=== PATIENT | male | born 1980 | race Caucasian/White ===

== ENCOUNTER 2024-03-21 15:32 | Outpatient (CLI) | payer BC, SELFPAY ==
--- NOTE | 2024-03-21 15:46 | MR_ITS ---
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 CLINICAL HISTORY: CRUSHING INJURY, HX AMPUTATION FINDINGS: Marrow signal: There are postoperative changes from amputation of the 1st and 2nd digits at the level of the proximal phalanges. There is also amputation of the 3rd digit at the level of the DIP joint. Marrow signal is otherwise unremarkable. Joints: Unremarkable Tendons:Visualized tendons are unremarkable Ligaments:Major ligaments intact Plantar Fascia:No evidence of tear No cystic or soft tissue mass. IMPRESSION: Postoperative changes as detailed above without acute abnormality. Reviewed, Interpreted and Dictated by Roberto Carlos Linares MD Transcribed by Tasneem Trejo Authenticated and [facility]
== END 2024-03-21 23:59 | disposition home or self-care (01) ==
LOC: RAD 15:33
PROVIDERS: PCP Podiatrist Foot & Ankle Surgery; Visit Provider Podiatrist Foot & Ankle Surgery
DX: M79.671 Pain in right foot (principal); S97.01XS Crushing injury of right ankle, sequela; S98.22 Partial traumatic amputation of two or more lesser toes; S92.30 Fracture of unspecified metatarsal bone(s)
CPT/HCPCS: 73718

== ENCOUNTER 2025-05-09 11:03 | Emergency (ER) | payer BC, MEDICAID, SELFPAY ==
[2025-05-09 11:13] VITALS: BP 168/93; PULSE 88; RESP 20; TEMP 36.8; O2SAT 98; BMI 27.8
--- OUTSIDE RECORDS SUMMARY | 2025-05-09 11:17 | XMS_ITS | Clinical Summary ---
Author Organization [facility] Address [address] [place] [address] Care Team Providers Care Sheet Metal Helper Name Role Phone Pcp, No Primary Care Provider Unavailabl e Allergies No known active allergies Medications acetaminophen (Tylenol) 500 MG tablet Take 2 tablets (1,000 mg total) by mouth every 6 (six) hours if needed for pain. 42 tablet 2 Active Additional Information Patient not taking.Reported on 06/30/2024 gabapentin (Neurontin) 100 MG capsule Take 1 capsule (100 mg total) by mouth 3 (three) times a day for 14 days. 42 capsule 2 Active Additional Information Patient not taking.Reported on 06/18/2023 ibuprofen 800 MG tablet Take 1 tablet (800 mg) by mouth every 6 (six) hours if needed for mild pain. 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, sequela 09/13/2022 Immunizations Immunization Administration Dates Next Due Tdap 09/13/2022 Social History Tobacco Use Types Packs/Day Years Used Date Smoking Tobacco: Every Day Cigarettes 1 20 Passive Smoke Exposure: Current Smokeless Tobacco: Current Snuff Tobacco Cessation:Ready to Q uit: No; Counseling Given: Yes Alcohol Use Standard Drinks/Week Comments Not Currently 0 (1 standard drink = 0.6 oz pur e alcohol) PHQ-2 Answer Date Recorded Patient Health Questionnaire-2 Score 0 06/18/2023 PHQ-2A Answer Date Recorded Patient Health Questionnaire-2 Score 0 06/18/2023 Sex and Gender Information Value Date Recorded Sex Assigned at Male 09/14/2022 7:09 AM EST Legal Sex Male 7:02 PM EST Gender Identity Male 09/14/2022 7:09 AM EST Sexual Orientation Not on file Last Filed Vital Signs Vital Sign Reading Time Taken Comments Blood Pressure 122/86 07/25/2024 10:03 AM EDT Pulse 76 07/25/2024 10:03 AM EDT Temperature 36.3 C (97.3 F) 07/25/2024 10:03 AM EDT Respiratory Rate 16 07/25/2024 10:03 AM EDT Oxygen Saturation 97% 06/30/2024 3:10 PM EDT Inhaled Oxygen Concentration - - Weight 99.8 kg (220 lb) 07/25/2024 10:03 AM EDT Height 180.3 cm (5' 11 ) 07/25/2024 10:03 AM EDT Body Mass Index 30.68 07/25/2024 10:03 AM EDT Plan of Treatment Health Maintenance Due Date Last Done Comments [facility]-HIV Screening 1978 [facility]-Hepatitis C Screening 1978 [facility]-Infant/Child/Adol SDOH Screenings 1978 [facility]- SDOH Screenings 1996 [facility]-Adult SDOH Screenings 1996 [facility]-Hepatitis B Vaccines (1 of 3 - 19+ 3-dose series) 1997 [facility]-Pneumococcal Vaccine: Pediatrics (0 to 5 Years) and At-Risk Patients (6 to 49 Years) (1 of 2 - PCV) 1997 CT Colonography 2023 Colonoscopy 2023 FIT-DNA 2023 FIT 2023 FOBT 2023 Sigmoidoscopy 2023 [facility]-Colorectal Cancer Screening 2023 [id number] Vaccine (1 - 2023- season) 2024 [facility]-Depression Screening 06/18/2024 06/18/2023 [facility]-Influenza Vaccine (#1) 2025 [facility]-Zoster Vaccines (1 of 2) 2028 [facility]-DTaP,Tdap,and Td Vaccines (2 - Td or Tdap) 09/13/2032 09/13/2022 [facility]-Obesity Intervention Completed 024, 06/30/2024, 09/17/2023, Additional history exists HPV Vaccines Aged Out No longer eligi ble based on patient's age to complete this topic [facility]-HIB Vaccines Aged Out No longer e ligible based on patient's age to complete this topic [facility]-Hepatitis A Vaccines Aged Out No longer eligible based on patient's age to complete this topic [facility]-IPV Vaccines Aged Out No longer e ligible based on patient's age to complete this topic [facility]-Rotavirus Vaccines Aged Out No lo nger eligible based on patient's age to complete this topic Medical Devices Implanted Type Area Bicycle Technician Device Identifier Shelf Expiration Date Model / Serial / Lot Wire Geni Trocar Point Small 2mm X 150mm - [id number] Implanted:Qty: 5 on 09/14/2022 by Rafael Cortez MD at [facility] Right: Foot [employer] [facility]-[id number] 09/15/2023 292.20 / / Explanted Type Area Bicycle Technician Device Identifier Shelf Expiration Date Model / Serial / Lot Wire Geni Trocar Point Small 2mm X 150mm - [id number] Explanted:Qty: 1 on 09/14/2022 at [facility] [employer] [facility]-[id number] 09/14/2023 292.20 / / Insurance [employer] GENERIC WORKERS COMP 119Kaitlin beard joy arana CAMELIA WALLER [id number] Advance Directives * Full Code (Latest Code Status on File) Date Activated Date Inactivated Comments 09/14/2022 10:16 AM 09/16/2022 8:57 PM Question Answer Comments Patient has decision-making capacity? Yes Care Teams Sheet Metal Helper Relationship Specialty Start Date End Date Pcp, No [address] [place] [address] PCP - General Family Medicine 09/13/22
--- OUTSIDE RECORDS SUMMARY | 2025-05-09 11:17 | XMS_ITS | Encounter Summary ---
Author Organization Healthcare Address [address] [place] [address] Care Team Providers Care Customer Service Voice Name Role Phone Pcp, No Primary Care Provider Unavailabl e Encounter Details Date Type Department Care Team ([facility] st Contact Info) Description 03/21/2024 Orders Only External Location [address] [place] [address] Provider, External Social History Tobacco Use Types Packs/Day Years Used Date Smoking Tobacco: Every Day Cigarettes 1 20 Alcohol Use Standard Drinks/Week Comments Defer 0 (1 standard drink = 0.6 oz pur e alcohol) PHQ-2 Answer Date Recorded Patient Health Questionnaire-2 Score 0 06/18/2023 PHQ-2A Answer Date Recorded Patient Health Questionnaire-2 Score 0 06/18/2023 Sex and Gender Information Value Date Recorded Sex Assigned at Male 09/14/2022 7:09 AM EST Legal Sex Male 7:02 PM EST Gender Identity Male 09/14/2022 7:09 AM EST Sexual Orientation Not on file documented as of this encounter Plan of Treatment Not on file documented as of this encounter Procedures Procedure Name Priority Date/Time Associated Diagnosis Comments MR MSK OUTSIDE IMAGES 03/21/2024 3:58 PM EDT documented in this encounter Results * MR MSK OUTSIDE IMAGES (03/21/2024 3:58 PM EDT) Anatomical Region Laterality Modality Magnetic Resonan ce 03/21/2024 3:58 PM EDT us External Provider IMG MRI PROCEDURES Final Resul t documented in this encounter Visit Diagnoses Not on filedocumented in this encounter Additional Health Concerns Assessment Noted Time A fall risk assessment has been complete d for the patient 09/17/2023 10:00 AM EST A Body Mass Index follow-up plan has been documented for the patient 09/17/2023 10:37 AM EST documented as of this encounter Care Teams Customer Service Voice Relationship Specialty Start Date End Date Pcp, [place] [address] PCP - General Family Medicine 09/13/22 documented as of this encounter
--- NOTE | 2025-05-09 11:28 | CT_ITS ---
FINAL REPORT TECHNIQUE: After the administration of intravenous contrast, axial images were obtained through the abdomen and pelvis by computed tomography. This study was performed with technique to keep radiation doses as low as reasonably achievable, (ALARA). Individualized dose reduction techniques using automated exposure control or adjustment of the MA and/or KV according to the patient's size were employed. CLINICAL HISTORY: Left-sided flank pain, N/V history of stones FINDINGS: Abdomen: Dependent edema is seen at the lung bases. There is mild fatty infiltration of the liver. The spleen is unremarkable. The adrenals are normal. The pancreas is unremarkable. Hazy stranding is seen surrounding the left kidney with mild left hydronephrosis. An obstructing stone is seen in the proximal left ureter measuring 3 mm. The aorta is normal in caliber. There is no free fluid or adenopathy. Pelvis: The appendix is normal. The urinary bladder is decompressed. There is no free fluid or adenopathy. IMPRESSION: 3 mm proximal left ureteral stone with mild left hydronephrosis. Reviewed, Interpreted and Dictated by Amari Bianchi MD Transcribed by Alberta Love Authenticated and [facility]
[2025-05-09 11:31] VITALS: BP 143/85; PULSE 67; O2SAT 95
[2025-05-09 11:32] LABS: Microscopic, Urine URINE MICROSCOPIC (MICROSCOPIC)
[2025-05-09 11:34] LABS: Hematocrit 47.6 % (42.0-52.0); Hemoglobin 15.9 g/dL (14.1-18.0); Immature Granulocytes % 0.5 %; Mean Corpuscular HGB Conc 33.4 g/dL (31.8-35.4); Mean Corpuscular Hemoglobin 30.1 pg (27.0-31.2); Mean Corpuscular Volume 90.2 fl (80-94); Nucleated Red Blood Cells % 0 %; Platelet Count 241 K/mm3 (142-424); Red Blood Count 5.28 M/mm3 (4.60-6.20); Red Cell Distribution Width-SD 44.7 fL; White Blood Count 12.9 K/mm3 (4.8-10.8)
[2025-05-09 11:34] LABS: Bilirubin,Urine Negative (Negative); Color,Urine YELLOW (Yellow); Glucose,Urine (UA) Negative (Negative); Ketones,Urine TRACE (Negative); Leukocyte Esterase,Urine Negative (Negative); PH,Urine 6.0 (5.0-8.5); Protein,Urine TRACE (Negative); Specific Gravity, Urine 1.025 (1.005-1.030); Urobilinogen,Urine 0.2 EU/dl (0.2)
[2025-05-09] MEDS: MORPHINE 2MG/ML SYRINGE 2 MG IV ×2 (11:37→12:54)
[2025-05-09] MEDS: ONDANSETRON 4MG/2ML VIAL 4 MG IV (11:37)
[2025-05-09] MEDS: KETOROLAC 30MG/ML VIAL 15 MG IV (11:37)
--- NOTE | 2025-05-09 11:37 | HMH.EDGENADL ---
Discharge Plan Disposition Patient Disposition: Home, Self-Care Prescriptions Prescriptions: New hydrocodone-acetaminophen 5-325 mg tablet 1 tab PO Q6H PRN (Reason: pain) Qty: 12 0RF ondansetron 4 mg tablet,disintegrating 4 mg PO Q6H PRN (Reason: nausea and vomiting) Qty: 10 0RF tamsulosin [Flomax] 0.4 mg capsule 0.4 mg PO DAILY Qty: 14 0RF Rx Instructions: Take daily until passage of stone. Referrals Follow up/Referrals: Pablito Monahan MD [Referring, Urology] - See instructions Provider,MD Olu [Primary Care Provider, Medical] - See instructions Activity Restrictions/Add. Instructions Additional Instructions/Restrictions: Please follow-up with your family physician and neurologist in the upcoming days/weeks to recheck your kidney function, please refrain from utilizing ibuprofen, use the medication that is prescribed to you for pain, as prescribed, utilize nausea and vomiting medication as prescribed, take Flomax medication daily until passage of stone. Please use urine strainer until passage of stone, please return to the emerged part any worsening signs or symptoms. Clinical Impressions Clinical Impression: Ureterolithiasis Instructions Patient Instructions: Kidney Stones -- Adult Print Language Print Language: Malian Discharge ED Provider: Octavio Gonzalez General Adult HPI <LYNN Frye - Last Filed: 05/09/25 12:55> General Chief complaint: Urogenital-Male Stated complaint: poss kidney stones, pain Time Seen by Provider: 05/09/25 11:07 Mode of Arrival: Ambulatory Source of Information: Patient Description of Symptoms (Recalled from ER Triage Doc. by RN): pt is here for left flank pain that radiates around front and pt has hx of kidney stones, pt has been in sharp stabbing pain since 0600 and has been expierncing n/v History of Present Illness HPI narrative: 44 year old male presents to the emergency department with complaints of flank pain. He states that the pain began at 6AM this morning on his left side and radiates to his back and groin area. He states it is a stabbing sharp pain. He states that he also noticed one episode of dark coke colored urine yesterday but states no other episode. Patient also states that he has been taking 800mg of Ibuprofen daily the past few days. Patient states nausea and one episode of vomiting, but denies fever, chills, SOA, CERDA, CP, or changes in bowel movement. Patient has no pertient PMH, is a current everyday smoker, denies any alcohol or drug use, has had a previous history of kidney stones, that he passed spontaneously, states this episode feels similar but worse . Initial triage vitals unremarkable. Of note patient has been taking 800 mg p.o. ibuprofen for the last 2 to 3 days due to ongoing dental pain . Onset (ago): hour(s) Related Data Previous Rx's ?Medication ?Instructions ?Recorded hydrocodone 5 mg-acetaminophen 325 1 tab PO Q6H PRN pain #12 tabs 05/09/25 mg tablet ondansetron 4 mg disintegrating 4 mg PO Q6H PRN nausea and 05/09/25 tablet vomiting #10 tabs tamsulosin 0.4 mg capsule (Flomax) 0.4 mg PO DAILY #14 caps 05/09/25 Allergies Allergy/AdvReac Type Severity Reaction Status Date / Time No Known Allergies Allergy Verified 05/09/25 11:22 [facility] <LYNN Frye - Last Filed: 05/09/25 12:55> [facility] Disclaimer: The information contained in this section may have been updated after the patient was seen, as this information can be updated by other users. Social History (Updated 05/09/25 @ 12:55 by LYNN Frye) Smoking Status: Current every day smoker alcohol intake: never current occupational status: other Travel in the last 8 weeks?: None Have you lived/traveled outside [place] in past 30 days?: No Contact w/someone who lives/traveled outside US past 30 days?: No Exposure to someone with infectious disease in past 14 days?: No Do you have a fever (greater than 100.4 F or 38 C)?: No Have you tested positive for COVID-19?: No Exposed to someone with COVID-19 in past 14 days?: No Do you have a sore throat?: No Do you have a cough?: No Do you have any weakness?: No Do you have any diarrhea?: No Are you experiencing any unusual bleeding?: No Do you have any muscle aches/pain?: No Do you have any abdominal pain?: No Are you experiencing loss of taste or smell?: No <LYNN Frye - Last Filed: 05/09/25 12:55> ROS Obtained: Yes All systems reviewed & no additional complaints except as documented Physical Exam <LYNN Frye - Last Filed: 05/09/25 12:55> General General appearance: alert and in no apparent distress Comment: Uncomfortable appearing male Head Head exam: atraumatic and normocephalic Eye Eye exam: Present PERRL and EOMI ENT ENT exam: Present mucous membranes moist Neck Neck exam: Present normal inspection Chest Chest inspection: Present normal inspection and symmetric chest wall rise Respiratory Respiratory exam: Present normal lung sounds bilaterally; Absent respiratory distress Cardiovascular Cardiovascular exam: Present regular rate and normal rhythm Abdominal Exam Abdominal exam: Present soft; Absent tenderness, guarding, rebound or rigidity Extremities Exam Extremities exam: Present normal inspection Back Exam Back exam: Present CVA tenderness (L) Neurological Exam Neurological exam: Present alert and oriented X3 Psychiatric Psychiatric exam: Present normal affect Skin Skin exam: Present warm and dry Medical Decision Making <LYNN Frye - Last Filed: 05/09/25 12:55> Medical Records Medical records reviewed: Yes I reviewed the patient's medical records. Screening: Per USPSTF and CDC recommendations, given the prevalence of disease in our region, it is our hospital?s policy to screen for HIV and viral Hepatitis for all patients aged 18 and over and those with ongoing risk factors. Jorge Inquiry Pt receiving controlled substance: Yes Jorge was queried for this patient: No Risks and benefits of using a controlled substance: were discussed with pt by me Vital Signs: 05/09/25 11:13 05/09/25 11:31 05/09/25 12:00 Temperature 98.2 F Temperature Source Oral Pulse Rate 67 69 Pulse Rate [Left Radial] 88 Respiratory Rate 20 Blood Pressure 143/85 H 129/77 Blood Pressure [Right Arm] 168/93 H Blood Pressure Mean 110 94 Blood Pressure Mean [Right Arm] 118 02 Sat by Pulse Oximetry 98 95 92 L Oxygen Delivery Method Room Air 05/09/25 12:30 05/09/25 13:05 Temperature 98.2 F Temperature Source Pulse Rate 69 80 Pulse Rate [Left Radial] Respiratory Rate 20 Blood Pressure 133/77 148/79 H Blood Pressure [Right Arm] Blood Pressure Mean Blood Pressure Mean [Right Arm] 02 Sat by Pulse Oximetry 94 L Oxygen Delivery Method Room Air Lab Data Lab results reviewed: Yes I reviewed the patient's lab results. Lab Results 05/09/25 11:00: Urine Color Yellow, Urine Appearance Sl cloudy, Urine pH 6.0, Ur Specific [place] 1.025, Urine Protein Trace, Urine Glucose (UA) Negative, Urine Ketones Trace, Urine Blood 3+ A, Urine Nitrate Negative, Urine Bilirubin Negative, Urine Urobilinogen 0.2, Ur Leukocyte Esterase Negative, Urine RBC 50-100, Urine WBC Occasional, Ur Squamous Epith Cells 3-5, Urine Bacteria Trace 05/09/25 11:15: WBC 12.9 H, RBC 5.28, Hgb 15.9, Hct 47.6, MCV 90.2, MCH 30.1, MCHC 33.4, RDW 13.5, Plt Count 241, MPV 10.9 H, Neut % (Auto) 84.6 H, Lymph % (Auto) 9.0 L, [place] % (Auto) 5.1, Eos % (Auto) 0.5, Baso % (Auto) 0.3, Neut # (Auto) 10.9 H, Lymph # (Auto) 1.2, [place] # (Auto) 0.7, Eos # (Auto) 0.1, Baso # (Auto) 0.0, Sodium 139, Potassium 4.0, Chloride 104, Carbon Dioxide 28, Anion Gap 11.0, BUN 12, Creatinine 1.30 H, Estimated Creat Clear 91, Estimated GFR 59, Est GFR ( Amer) 72, Glucose 135 H, Calcium 9.8, Total Bilirubin 0.3, AST 33, ALT 35, Alkaline Phosphatase 106, Total Protein 7.2, Albumin 3.8, Globulin 3.4 H, Albumin/Globulin Ratio 1.1, Lipase 37 05/09/25 11:32: Lactate 1.1 05/09/25 11:15 05/09/25 11:15 Orders (Tests/Meds): ED MEDICATIONS Discontinued Medications Generic Name Dose Route Start Last Admin Trade Name Freq PRN Reason Stop Dose Admin Iopamidol 75 ml 05/09/25 12:08 05/09/25 12:09 Iopamidol-370 (76%);100ml Bottle IV 05/09/25 12:09 75 ml ONCE ONE Administration Ketorolac Tromethamine 15 mg 05/09/25 11:29 05/09/25 11:37 Ketorolac 30mg/Ml Vial IV 05/09/25 11:30 15 mg ONCE ONE Administration Morphine Sulfate 2 mg 05/09/25 11:45 05/09/25 11:37 Morphine 2mg/Ml Syringe IV 05/09/25 11:46 2 mg ONCE ONE Administration Morphine Sulfate 2 mg 05/09/25 12:50 05/09/25 12:54 Morphine 2mg/Ml Syringe IV 05/09/25 12:51 2 mg ONCE ONE Administration Ondansetron HCl 4 mg 05/09/25 11:29 05/09/25 11:37 Ondansetron 4mg/2ml Vial IV 05/09/25 11:30 4 mg ONCE ONE Administration Sodium Chloride 10 ml 05/09/25 12:08 05/09/25 12:09 Sodium Chloride 0.9% 10ml Syr (Rad Only) IV 05/09/25 12:09 10 ml ONCE ONE Administration ORDERS Category Date Time Status CT abdomen pelvis w con Stat Cat Scan 05/09/25 11:28 Completed Complete Blood Count Auto Diff Stat Lab 05/09/25 11:15 Completed Comprehensive Metabolic Panel Stat Lab 05/09/25 11:15 Completed Lactic Acid Stat Lab 05/09/25 11:32 Completed Lipase Stat Lab 05/09/25 11:15 Completed Urinalysis and Microscopic Stat Lab 05/09/25 11:00 Completed Medical Decision Narrative: 44-year-old male presents the emergency department with left-sided flank pain/back pain that started this morning with episode of nausea and vomiting, and some dark-colored urine yesterday, differential diagnosis include but not limited to, nephrolithiasis, ureterolithiasis, acute lumbar sacral strain, acute UTI, acute pyelonephritis, diverticulitis, pancreatitis among others. I discussed this patient's case with the attending physician Dr. Gonzalez Will obtain basic laboratory studies, lactic acid level, lipase, urinalysis, CT ab pelvis with contrast, will give 15 mg IV Toradol, 10 mg IV morphine and 4 mg of Zofran for pain and nausea. CBC notable for mild leukocytosis 12.9 Urinalysis notable for 3+ hematuria, negative nitrites, negative leukocyte esterase, trace ketonuria. CMP is noted for elevated creatinine 1.3, lipase in normal limits, otherwise unremarkable CMP. Microscopic analysis of the patient's urine is notable for 5200 RBCs, occasional WBCs, 3-5 squamous cells and trace urine bacteria. I reviewed the patient's CT abdomen pelvis with contrast along the corresponding radiologic report, 3 mm proximal left ureteral stone with mild left hydronephrosis. I discussed all results with the patient family at the bedside upon reexamination at approximately 12:45 PM, patient is still having some pain, but did have some relief from previous analgesia, will give additional dose of 2 mg IV morphine for pain. Patient otherwise remained hemodynamically stable without his time in the emergency department, I did discuss his transient creatinine elevation, unsure patient's creatinine baseline, however encouraged him to stop taking the 800 mg ibuprofen and will send the patient home with adequate analgesia with 5 mg p.o. [place], 4 mg p.o. sublingual Zofran, as well as 0.4 mg tamsulosin p.o. daily until passage of stone, patient was given strict ED return precautions, and patient follow-up with urologist as well as PCP in the upcoming days/weeks. Patient and family voiced understanding and agreement Contreet plan/discharge plan. Patient's urinalysis does not show any signs of infection, thus making septic stone less likely, I do think the white blood cell count elevation is elevated in the setting of pain. <Octavio Gonzalez MD - Last Filed: 05/09/25 13:24> Vital Signs: 05/09/25 11:13 05/09/25 11:31 05/09/25 12:00 Temperature 98.2 F Temperature Source Oral Pulse Rate 67 69 Pulse Rate [Left Radial] 88 Respiratory Rate 20 Blood Pressure 143/85 H 129/77 Blood Pressure [Right Arm] 168/93 H Blood Pressure Mean 110 94 Blood Pressure Mean [Right Arm] 118 02 Sat by Pulse Oximetry 98 95 92 L Oxygen Delivery Method Room Air 05/09/25 12:30 05/09/25 13:05 Temperature 98.2 F Temperature Source Pulse Rate 69 80 Pulse Rate [Left Radial] Respiratory Rate 20 Blood Pressure 133/77 148/79 H Blood Pressure [Right Arm] Blood Pressure Mean Blood Pressure Mean [Right Arm] 02 Sat by Pulse Oximetry 94 L Oxygen Delivery Method Room Air Lab Data Lab Results 05/09/25 11:00: Urine Color Yellow, Urine Appearance Sl cloudy, Urine pH 6.0, Ur Specific [place] 1.025, Urine Protein Trace, Urine Glucose (UA) Negative, Urine Ketones Trace, Urine Blood 3+ A, Urine Nitrate Negative, Urine Bilirubin Negative, Urine Urobilinogen 0.2, Ur Leukocyte Esterase Negative, Urine RBC 50-100, Urine WBC Occasional, Ur Squamous Epith Cells 3-5, Urine Bacteria Trace 05/09/25 11:15: WBC 12.9 H, RBC 5.28, Hgb 15.9, Hct 47.6, MCV 90.2, MCH 30.1, MCHC 33.4, RDW 13.5, Plt Count 241, MPV 10.9 H, Neut % (Auto) 84.6 H, Lymph % (Auto) 9.0 L, [place] % (Auto) 5.1, Eos % (Auto) 0.5, Baso % (Auto) 0.3, Neut # (Auto) 10.9 H, Lymph # (Auto) 1.2, [place] # (Auto) 0.7, Eos # (Auto) 0.1, Baso # (Auto) 0.0, Sodium 139, Potassium 4.0, Chloride 104, Carbon Dioxide 28, Anion Gap 11.0, BUN 12, Creatinine 1.30 H, Estimated Creat Clear 91, Estimated GFR 59, Est GFR ( Amer) 72, Glucose 135 H, Calcium 9.8, Total Bilirubin 0.3, AST 33, ALT 35, Alkaline Phosphatase 106, Total Protein 7.2, Albumin 3.8, Globulin 3.4 H, Albumin/Globulin Ratio 1.1, Lipase 37 05/09/25 11:32: Lactate 1.1 Orders (Tests/Meds): ED MEDICATIONS Discontinued Medications Generic Name Dose Route Start Last Admin Trade Name Tesha PRN Reason Stop Dose Admin Iopamidol 75 ml 05/09/25 12:08 05/09/25 12:09 Iopamidol-370 (76%);100ml Bottle IV 05/09/25 12:09 75 ml ONCE ONE Administration Ketorolac Tromethamine 15 mg 05/09/25 11:29 05/09/25 11:37 Ketorolac 30mg/Ml Vial IV 05/09/25 11:30 15 mg ONCE ONE Administration Morphine Sulfate 2 mg 05/09/25 11:45 05/09/25 11:37 Morphine 2mg/Ml Syringe IV 05/09/25 11:46 2 mg ONCE ONE Administration Morphine Sulfate 2 mg 05/09/25 12:50 05/09/25 12:54 Morphine 2mg/Ml Syringe IV 05/09/25 12:51 2 mg ONCE ONE Administration Ondansetron HCl 4 mg 05/09/25 11:29 05/09/25 11:37 Ondansetron 4mg/2ml Vial IV 05/09/25 11:30 4 mg ONCE ONE Administration Sodium Chloride 10 ml 05/09/25 12:08 05/09/25 12:09 Sodium Chloride 0.9% 10ml Syr (Rad Only) IV 05/09/25 12:09 10 ml ONCE ONE Administration ORDERS Category Date Time Status CT abdomen pelvis w con Stat Cat Scan 05/09/25 11:28 Completed Complete Blood Count Auto Diff Stat Lab 05/09/25 11:15 Completed Comprehensive Metabolic Panel Stat Lab 05/09/25 11:15 Completed Lactic Acid Stat Lab 05/09/25 11:32 Completed Lipase Stat Lab 05/09/25 11:15 Completed Urinalysis and Microscopic Stat Lab 05/09/25 11:00 Completed Medical Decision Narrative: 44-year-old male presents the emergency department with left-sided flank pain/back pain that started this morning with episode of nausea and vomiting, and some dark-colored urine yesterday, differential diagnosis include but not limited to, nephrolithiasis, ureterolithiasis, acute lumbar sacral strain, acute UTI, acute pyelonephritis, diverticulitis, pancreatitis among others. I discussed this patient's case with the attending physician Dr. Gonzalez Will obtain basic laboratory studies, lactic acid level, lipase, urinalysis, CT ab pelvis with contrast, will give 15 mg IV Toradol, 10 mg IV morphine and 4 mg of Zofran for pain and nausea. CBC notable for mild leukocytosis 12.9 Urinalysis notable for 3+ hematuria, negative nitrites, negative leukocyte esterase, trace ketonuria. CMP is noted for elevated creatinine 1.3, lipase in normal limits, otherwise unremarkable CMP. Microscopic analysis of the patient's urine is notable for 5200 RBCs, occasional WBCs, 3-5 squamous cells and trace urine bacteria. I reviewed the patient's CT abdomen pelvis with contrast along the corresponding radiologic report, 3 mm proximal left ureteral stone with mild left hydronephrosis. I discussed all results with the patient family at the bedside upon reexamination at approximately 12:45 PM, patient is still having some pain, but did have some relief from previous analgesia, will give additional dose of 2 mg IV morphine for pain. Patient otherwise remained hemodynamically stable without his time in the emergency department, I did discuss his transient creatinine elevation, unsure patient's creatinine baseline, however encouraged him to stop taking the 800 mg ibuprofen and will send the patient home with adequate analgesia with 5 mg p.o. [place], 4 mg p.o. sublingual Zofran, as well as 0.4 mg tamsulosin p.o. daily until passage of stone, patient was given strict ED return precautions, and patient follow-up with urologist as well as PCP in the upcoming days/weeks. Patient and family voiced understanding and agreement Contreet plan/discharge plan. Patient's urinalysis does not show any signs of infection, thus making septic stone less likely, I do think the white blood cell count elevation is elevated in the setting of pain. I was consulted by the [facility], and we discussed the complexity of the problems being addressed. I approve the treatment and management plan for this patient's care in the emergency department, thus performing a substantive portion of the medical decision making. Octavio Gonzalez MD Critical Care <LYNN Frye - Last Filed: 05/09/25 12:55> Critical Care Time Critical Care Time: No
[2025-05-09 11:59] LABS: Albumin Level 3.8 g/dl (3.5-5.0); Chloride 104 mmol/L (98-107); Potassium 4.0 mmoL/L (3.5-5.1); Sodium 139 mmol/L (136-145)
[2025-05-09 12:00] VITALS: BP 129/77; PULSE 69; O2SAT 92
[2025-05-09 12:02] LABS: Alanine Aminotransferase 35 U/L (12-78); Albumin/Globulin Ratio 1.1 (1.1-1.8); Alkaline Phosphatase 106 U/L (38-126); Anion Gap 11.0 mEq/L (5-15); Aspartate Amino Transferase 33 U/L (17-59); Bilirubin,Total 0.3 mg/dl (0.2-1.3); Blood Urea Nitrogen 12 mg/dl (9-20); Calcium 9.8 mg/dl (8.4-10.2); Carbon Dioxide 28 mmol/L (22.0-30.0); Creatinine Clearance Estimated 91 mL/min (50-200); Creatinine,Serum 1.30 mg/dl (0.66-1.25); Estimated Glomerular Filt Rate 59 ml/min (>60); GFR (African American) 72 ML/MIN (>60); Globulin 3.4 g/dL (1.3-3.2); Glucose 135 mg/dl (74-100); Lipase 37 U/L (23-300); Total Protein,Serum 7.2 g/dl (6.3-8.2)
[2025-05-09 12:02] LABS: Bacteria,Urine Trace /lpf; RBC,Urine 50-100 #/hpf (0-3); WBC,Urine Occasional #/hpf (0-3)
[2025-05-09] MEDS: SODIUM CHLORIDE 0.9% 10ML SYR (RAD ONLY) 10 ML IV (12:09)
[2025-05-09] MEDS: IOPAMIDOL-370 (76%);100ML BOTTLE 75 ML IV (12:09)
[2025-05-09 12:30] VITALS: BP 133/77; PULSE 69; O2SAT 94
[2025-05-09 13:05] VITALS: BP 148/79; PULSE 80; RESP 20; TEMP 36.8; O2SAT 97
== END 2025-05-09 13:05 | disposition home or self-care (01) ==
PROVIDERS: Physician Assistant; Emergency Provider Student in an Organized Health Care Education/Training Program
DX: R10.9 Unspecified abdominal pain (principal); N20.1 Calculus of ureter; R11.2 Nausea with vomiting, unspecified; F17.200 Nicotine dependence, unspecified, uncomplicated
CPT/HCPCS: 74177; 80053; 81001; 83605; 83690; 85025; 96374; 96375; 96376; 99285; J1885; J2270; J2405; Q9967